=== PATIENT | female | born 1960 | race Caucasian/White ===

== ENCOUNTER 2017-11-16 09:35 | Emergency (ER) | payer MEDICAID ==
[2017-11-16 10:09] LABS: APPEARANCE CLOUDY (CLEAR); BILIRUBIN NEGATIVE (NEGATIVE); COLOR YELLOW (YELLOW); GLUCOSE NEGATIVE (NEGATIVE); KETONE NEGATIVE (NEGATIVE); NITRITE NEGATIVE (NEGATIVE); PROTEIN TRACE mg/dL (NEGATIVE); SPECIFIC GRAVITY 1.005 (1.005-1.020); UROBILINOGEN NORMAL (NORMAL)
[2017-11-16 10:11] LABS: BACTERIA MANY /hpf (NONE SEEN); EPITHELIAL CELLS OCC /hpf (0-5); WHITE CELLS - URINE >50 /hpf (0-5)
== END 2017-11-16 10:51 | disposition home or self-care (01) ==
LOC: D.ER 09:35
PROVIDERS: Family Medicine
DX: N39.0 Urinary tract infection, site not specified (principal); J44.9 Chronic obstructive pulmonary disease, unspecified

== ENCOUNTER 2018-10-17 11:57 | Emergency (ER) | payer MEDICAID ==
[~2018-10-17] VITALS: Ht 142.2 cm; Wt 54.5 kg
[2018-10-17 12:05] VITALS: Ht 142.2 cm; Wt 54.5 kg
[2018-10-17] MEDS ORDERED: BUPROPION HCL150 M1 PO (12:08)
[2018-10-17] MEDS ORDERED: NEURONTIN600 MG PO (12:08)
[2018-10-17 13:46] VITALS: BP 128/72
== END 2018-10-17 13:47 | disposition home or self-care (01) ==
LOC: D.ER 11:57
DX: J06.9 Acute upper respiratory infection, unspecified (principal); R05 Cough; F17.200 Nicotine dependence, unspecified, uncomplicated; R09.89 Other specified symptoms and signs involving the circulatory and respiratory systems

== ENCOUNTER 2018-12-27 20:23 | Emergency (ER) | payer MEDICAID ==
[~2018-12-27] VITALS: Ht 142.2 cm; Wt 55.3 kg
[~2018-12-27 20:23] MED LIST: BUPROPION HCL150 M1 PO; NEURONTIN600 MG PO
[2018-12-27 20:39] VITALS: Ht 142.2 cm; Wt 55.3 kg
[2018-12-27] MEDS ORDERED: NEURONTIN600 MG PO (21:15)
[2018-12-27 21:34] VITALS: BP 116/76
== END 2018-12-27 21:35 | disposition home or self-care (01) ==
LOC: D.ER 20:23
DX: M54.12 Radiculopathy, cervical region (principal)

== ENCOUNTER 2019-08-20 14:02 | Emergency (ER) | payer MEDICAID ==
[~2019-08-20] VITALS: Ht 142.2 cm; Wt 55.5 kg
[2019-08-20 14:05] VITALS: Ht 142.2 cm; Wt 55.5 kg
[2019-08-20 14:39] VITALS: BP 160/90
[2019-08-20] MEDS ORDERED: NAPROSYN500 MG PO (14:40)
== END 2019-08-20 14:53 | disposition home or self-care (01) ==
LOC: D.ER 14:02
DX: M54.2 Cervicalgia (principal)

== ENCOUNTER 2019-11-05 18:22 | Emergency (ER) | payer MEDICAID ==
[~2019-11-05] VITALS: Ht 142.2 cm; Wt 55.5 kg
[~2019-11-05 18:22] MED LIST changes: +NAPROSYN500 MG PO
[2019-11-05 18:27] VITALS: Ht 142.2 cm; Wt 55.5 kg
[2019-11-05] MEDS ORDERED: DICLOFENAC SODI50 MG PO (19:09)
[2019-11-05 19:33] VITALS: BP 130/82
== END 2019-11-05 19:33 | disposition home or self-care (01) ==
LOC: D.ER 18:22
DX: G89.29 Other chronic pain (principal); M54.2 Cervicalgia; J44.9 Chronic obstructive pulmonary disease, unspecified; Z72.0 Tobacco use